=== PATIENT | female | born 1985 | race African-American/Black ===

== ENCOUNTER 2018-06-15 05:53 | Emergency (ER) | payer SELFPAY ==
[~2018-06-15] VITALS: Ht 162.6 cm; Wt 79.1 kg
[2018-06-15 06:11] VITALS: TEMP 98.4
[2018-06-15] MEDS ORDERED: SUBOXONE 8 MG-21 TAB SL (06:52)
[2018-06-15] MEDS ORDERED: CATAPRES 0.1MG0.1 MG PO (07:11)
[2018-06-15] MEDS ORDERED: FLEXERIL 1010 MG/TAB PO (07:11)
[2018-06-15] MEDS ORDERED: PHENERGAN 25 TA25 MG PO (07:11)
[2018-06-15] MEDS ORDERED: ZOFRAN 4MG T4 MG/TAB PO (07:11)
[2018-06-15 07:49] VITALS: BP 140/77; PULSE 68
== END 2018-06-15 07:51 | disposition home or self-care (01) ==
LOC: COL.ER 05:53
DX: F11.23 Opioid dependence with withdrawal (principal); F17.210 Nicotine dependence, cigarettes, uncomplicated; Z88.1 Allergy status to other antibiotic agents; Z98.890 Other specified postprocedural states

== ENCOUNTER 2018-06-17 03:43 | Emergency (ER) | payer SELFPAY ==
[~2018-06-17] VITALS: Ht 162.6 cm; Wt 82.3 kg
[~2018-06-17 03:43] MED LIST: CATAPRES 0.1MG0.1 MG PO; FLEXERIL 1010 MG/TAB PO; PHENERGAN 25 TA25 MG PO; SUBOXONE 8 MG-21 TAB SL; ZOFRAN 4MG T4 MG/TAB PO
[2018-06-17 03:53] VITALS: BP 129/91; PULSE 90; TEMP 98.1
[2018-06-17] MEDS ORDERED: PHENERGAN 25 TA25 MG PO (10:29)
== END 2018-06-17 04:40 ==
LOC: COL.ER 03:43
DX: R19.7 Diarrhea, unspecified (principal)

== ENCOUNTER 2018-06-17 09:33 | Emergency (ER) | payer SELFPAY ==
[~2018-06-17] VITALS: Ht 162.6 cm; Wt 82.3 kg
[2018-06-17 09:33] VITALS: TEMP 98.7
[2018-06-17 10:16] LABS: BASO % 0.2 % (0.0-2.0); EOS % 0.4 % (0-4.0); GRAN # 6.9 (1.4-6.5); HEMOGLOBIN 10.1 g/dl (12.5-16.0); LYMPH # 2.3 (1.2-3.4); LYMPH % 23.2 % (20.0-51.0); MEAN CORPUSCULAR HEMOGLOBIN 19 pg (27.0-31.0); MEAN CORPUSCULAR HGB CONC 30 g/dl (33.0-37.0); MEAN PLATELET VOLUME 9.4 fl (7.4-10.4); MONO # 0.5 (0.1-0.6); MONO % 4.9 % (1.7-9.3); PLATELET COUNT 360 K/mm3 (130-400); RED BLOOD COUNT 5.35 M/mm3 (4.10-5.30); REDCELL DISTRIBUTION WIDTH-CV 21.2 % (11.5-14.5)
[2018-06-17 10:25] LABS: HEMATOCRIT 34.1 % (37.0-47.0)
[2018-06-17 10:27] LABS: ALBUMIN 4.5 gm/dL (3.5-5.0); BILIRUBIN,TOTAL 0.2 mg/dL (0.0-1.0); CALCIUM 9.2 mg/dL (8.4-10.2); CREATININE, serum 0.54 mg/dL (0.52-1.25); MEAN CELL VOLUME 64 fl (80.0-100.0); POTASSIUM 3.5 mmol/L (3.4-5.0); TOTAL PROTEIN 8.5 gm/dL (6.4-8.2)
[2018-06-17] MEDS ORDERED: PHENERGAN 25 TA25 MG PO (10:29)
[2018-06-17 11:53] VITALS: BP 128/90; PULSE 68
== END 2018-06-17 11:55 | disposition home or self-care (01) ==
LOC: COL.ER 09:33
PROVIDERS: Emergency Medicine
DX: R11.10 Vomiting, unspecified (principal); R19.7 Diarrhea, unspecified; F11.23 Opioid dependence with withdrawal
CPT/HCPCS: C9113; J1630; J2405; J3010; J7030

== ENCOUNTER 2018-06-21 09:00 | Emergency (ER) | payer SELFPAY | END 2018-06-21 10:36 | disposition home or self-care (01) | LOC: COL.ER 09:00 | DX: F11.23 Opioid dependence with withdrawal (principal); Z98.890 Other specified postprocedural states ==

== ENCOUNTER 2018-07-03 13:57 | Emergency (ER) | payer SELFPAY ==
[~2018-07-03] VITALS: Ht 162.6 cm; Wt 82.3 kg
[2018-07-03 14:00] VITALS: BP 132/79; TEMP 98.9
[2018-07-03 18:02] LABS: COLLECTION METHOD CLEAN CATCH
[2018-07-03 18:09] LABS: HCG-QUALITATIVE URINE NEGATIVE
[2018-07-03 18:11] LABS: MUCOUS Present /lpf; PH 6 (5-8); URINE APPEARANCE Hazy; URINE BACTERIA None Seen /hpf; URINE BILIRUBIN Negative (NEGATIVE); URINE BLOOD Negative (NEGATIVE); URINE COLOR Yellow; URINE GLUCOSE Negative (NEGATIVE); URINE KETONE Negative (NEGATIVE); URINE LEUKOCYTE ESTERASE Trace (NEGATIVE); URINE NITRATE Negative (NEGATIVE); URINE PROTEIN(semi-quant) Negative (NEGATIVE); URINE UROBILINOGEN Negative (NEGATIVE)
[2018-07-03 18:16] LABS: ALBUMIN 4.1 gm/dL (3.5-5.0); BILIRUBIN,TOTAL 0.1 mg/dL (0.0-1.0); CALCIUM 8.8 mg/dL (8.4-10.2); CREATININE, serum 0.47 mg/dL (0.52-1.25); TOTAL PROTEIN 7.7 gm/dL (6.4-8.2)
[2018-07-03 18:20] LABS: BASO % 0.1 % (0.0-2.0); EOS # 0.2 (0.0-0.7); EOS % 1.9 % (0-4.0); GRAN # 5.9 (1.4-6.5); LYMPH % 30.8 % (20.0-51.0); MEAN CELL VOLUME 64 fl (80.0-100.0); MEAN CORPUSCULAR HGB CONC 30 g/dl (33.0-37.0); MEAN PLATELET VOLUME 9.4 fl (7.4-10.4); MONO # 0.7 (0.1-0.6); MONO % 6.7 % (1.7-9.3); PLATELET COUNT 226 K/mm3 (130-400); RED BLOOD COUNT 4.95 M/mm3 (4.10-5.30); REDCELL DISTRIBUTION WIDTH-CV 20.6 % (11.5-14.5)
[2018-07-03 18:22] LABS: STREP SCREEN NEGATIVE
[2018-07-03 18:23] LABS: HEMATOCRIT 31.6 % (37.0-47.0); HEMOGLOBIN 9.4 g/dl (12.5-16.0); MEAN CORPUSCULAR HEMOGLOBIN 19 pg (27.0-31.0)
[2018-07-03] MEDS ORDERED: MACROBID 1100 MG/CAP PO (18:30)
[2018-07-03 18:50] VITALS: PULSE 87
== END 2018-07-03 18:50 | disposition home or self-care (01) ==
LOC: COL.ER 13:57
PROVIDERS: Physician Assistant
DX: R22.1 Localized swelling, mass and lump, neck (principal); I25.10 Atherosclerotic heart disease of native coronary artery without angina pectoris; F17.210 Nicotine dependence, cigarettes, uncomplicated

== ENCOUNTER 2018-07-06 13:29 | Emergency (ER) | payer SELFPAY ==
[~2018-07-06] VITALS: Ht 162.6 cm; Wt 82.3 kg
[~2018-07-06 13:29] MED LIST changes: +MACROBID 1100 MG/CAP PO
[2018-07-06 13:40] VITALS: BP 118/69; TEMP 98.5
[2018-07-06] MEDS ORDERED: CEPHALEXIN500 M1 PO (14:10)
[2018-07-06 14:25] VITALS: PULSE 80
== END 2018-07-06 14:26 | disposition home or self-care (01) ==
LOC: COL.ER 13:29
DX: T36.95XA Adverse effect of unspecified systemic antibiotic, initial encounter (principal); F11.20 Opioid dependence, uncomplicated; F17.210 Nicotine dependence, cigarettes, uncomplicated; Z98.890 Other specified postprocedural states